=== PATIENT | female | born 1950 | race Caucasian/White ===

== ENCOUNTER → 2017-02-10 | Outpatient (CLI) | payer OTHER | LOC: FIMAGING 10:43 | PROVIDERS: ATTEND Physician Assistant | DX: Z12.31 Encounter for screening mammogram for malignant neoplasm of breast (principal); Z13.820 Encounter for screening for osteoporosis; M85.80 Other specified disorders of bone density and structure, unspecified site | CPT/HCPCS: G0202 ==

== ENCOUNTER → 2017-02-24 | Outpatient (CLI) | payer OTHER | LOC: FIMAGING 14:41 | PROVIDERS: ATTEND Physician Assistant | DX: R92.8 Other abnormal and inconclusive findings on diagnostic imaging of breast (principal) | CPT/HCPCS: 76641; G0206 ==

== ENCOUNTER 2017-05-03 12:52 | Day surgery (SDC) | payer OTHER ==
[2017-05-03] MEDS ORDERED: MIDAZOLAM 2 MG/2 ML VIAL ONE (14:44)
[2017-05-03] MEDS ORDERED: fentaNYL 100 MCG/2 ML INJ ONE (14:44)
== END 2017-05-03 17:05 | disposition home or self-care (01) ==
LOC: FIMAGING 12:52
PROVIDERS: ATTEND Internal Medicine Hematology & Oncology
PROC: 0DBP0ZX Excision of Rectum, Open Approach, Diagnostic (ICD-10-PCS; principal; 2017-05-03 16:00)
DX: C21.8 Malignant neoplasm of overlapping sites of rectum, anus and anal canal (principal)
CPT/HCPCS: J2250; J3010

== ENCOUNTER 2017-05-25 05:59 | Day surgery (SDC) | payer OTHER ==
[2017-05-25] MEDS ORDERED: ceFAZolin 2 GM/DEXTROSE 100 ML IV ONE (06:44)
[2017-05-25] MEDS ORDERED: LIDOCAINE 1% 300 MG/30 ML SDV ONE (06:45)
[2017-05-25] MEDS ORDERED: BUPIVACAINE 0.5% 30 ML SDV ONE (06:45)
[2017-05-25] MEDS ORDERED: SODIUM BICARBONATE 10 MEQ/10 ML SYR IVP ONE (06:45)
[2017-05-25] MEDS ORDERED: LR 1,000 ML IV ONE (07:14)
--- NOTE | 2017-05-25 07:20 | PDANEPAE ---
ANE History of Present Illness 67 yo F w cancer recurrence here for chemoport placement ANE Past Medical History - Cardiovascular History Hx Hypertension: No Hx Arrhythmias: No Hx Chest Pain: No Hx Coronary Artery / Peripheral Vascular Disease: No Hx CHF / Valvular Disease: No Hx Palpitations: No - Pulmonary History Hx COPD: No Hx Asthma/Reactive Airway Disease: No Hx Recent Upper Respiratory Infection: No Hx Oxygen in Use at Home: No Hx Sleep Apnea: No Sleep Apnea Screening Result - Last Documented: Negative - Neurologic History Hx Cerebrovascular Accident: No Hx Seizures: No Hx Dementia: No - Endocrine History Hx Diabetes: No - Renal History Hx Renal Disorders: No - Liver History Hx Hepatic Disorders: No - Neurological & Psychiatric Hx Hx Neurological and Psychiatric Disorders: No - Cancer History Hx Cancer: Yes Cancer History Comment: Rectal cancer - Congenital Disorder History Hx Congenital Disorders: No - GI History Hx Gastrointestinal Disorders: Yes Gastrointestinal History Comment: rectal cancer - Other Health History Other Health History: none - Chronic Pain History Chronic Pain: No - Surgical History Prior Surgeries: Right Shoulder- dislocation repair. rectal surgery for cancer. Tonsils ANE Review of Systems Review of systems is: negative - Exercise capacity Exercise capacity: >=4 METS METS (RN): 4 METS ANE Patient History - Allergies Allergies/Adverse Reactions: No Known Allergies Allergy (Verified 05/24/17 15:16) - Home Medications Home medications: home medication list seen and reviewed Home Medications: NK [No Known Home Meds] 05/03/17 [Last Taken Unknown] - NPO status NPO Status: no food or drink >8 hours NPO Since - Liquids (Date): 05/24/17 NPO Since - Liquids (Time): 20:00 NPO Since - Solids (Date): 05/24/17 NPO Since - Solids (Time): 20:00 - Anes Hx Anes Hx: no prior problems - Smoking Hx Smoking Status: Never smoked - Alcohol Use Alcohol Use: Rarely - Family Anes Hx Family Anes Hx: none Family Hx Anesthesia Complications: none ANE Labs/Vital Signs - Vital Signs Blood Pressure: 91/60 Heart Rate: 55 Respiratory Rate: 16 O2 Sat (%): 96 Height: 170.18 cm Weight: 72.575 kg ANE Physical Exam - Airway Neck exam: FROM Mallampati Score: Class 2 Mouth exam: normal dental/mouth exam - Pulmonary Pulmonary: no respiratory distress, clear to auscultation - Cardiovascular Cardiovascular: regular rate and rhythym, no murmur, rub, or gallop - ASA Status ASA Status: II ANE Anesthesia Plan Anesthesia Plan: GA w LMA
[2017-05-25] MEDS ORDERED: MIDAZOLAM 2 MG/2 ML VIAL IVP ONE (07:21)
[2017-05-25] MEDS ORDERED: LIDOCAINE 2% 100 MG/5 ML SYR ONE (07:28)
[2017-05-25] MEDS ORDERED: PROPOFOL 200 MG/20 ML VIAL ONE ×2 (07:28)
[2017-05-25] MEDS ORDERED: fentaNYL 100 MCG/2 ML INJ ONE (07:28)
--- NOTE | 2017-05-25 07:41 | PDHPUP ---
History & Physical Update H&P update statement: This history and physical update is based on an assessment of the patient which was completed after admission or registration (within 24 hours), but prior to the surgery/procedure. H&P update: H&P reviewed & patient examined, no change in patient's condition since H&P completed
[2017-05-25] MEDS ORDERED: ONDANSETRON 4 MG/2 ML VIAL ONE (07:54)
[2017-05-25] MEDS ORDERED: DEXAMETHASONE 4 MG/ML VIAL ONE (07:54)
[2017-05-25] MEDS ORDERED: epHEDrine SULFATE 10 MG/ML SYR ONE ×2 (08:14→08:15)
[2017-05-25] MEDS ORDERED: PROMETHAZINE HCL 25 MG/ML INJ IVP PRN (08:19)
[2017-05-25] MEDS ORDERED: fentaNYL 100 MCG/2 ML INJ IVP PRN (08:19)
[2017-05-25] MEDS ORDERED: OXYCODONE/APAP 5/325 TAB PO PRN (08:19)
[2017-05-25] MEDS ORDERED: ONDANSETRON 4 MG/2 ML VIAL IVP PRN (08:19)
[2017-05-25] MEDS ORDERED: ACETAMINOPHEN 500 MG TAB PO PRN (08:19)
[2017-05-25] MEDS ORDERED: NALOXONE HCL 0.4 MG/ML INJ IVP PRN (08:19)
[2017-05-25] MEDS ORDERED: HYDROCODONE/APAP 5/325 TAB PO PRN (08:25)
--- NOTE | 2017-05-25 08:25 | POSTOPPROG ---
Post Op Note Date of Operation: 05/25/17 Surgeon: Bret Ritter Belt Polisher: none Anesthesiologist: Familia Blair Anesthesia: GET(General Endotracheal) Pre-op Diagnosis: rectal CA Post-op Diagnosis: same Procedure: power port placement with flouro Findings: good position and flow Inf/Abcess present in the surg proc area at time of surgery?: No EBL: Minimal Complications: none
[2017-05-25 09:25] VITALS: O2SAT 99
[2017-05-25 10:25] VITALS: BP 100/67
[2017-05-25 10:34] VITALS: PULSE 71; RESP 16; TEMP 97.5
--- NOTE | 2017-05-25 19:03 | POSTANESTH ---
Post Anesthetic Evaluation Cardiovascular Status: Normal, Stable, Similar to Pre-Op Cond Respiratory Status: Normal, Stable, Similar to Pre-op Cond. Level of Consciousness/Mental Status: Can Participate in Eval, Alert and Oriented Pain Control: Adequate, Prn Tx Ordered Nausea/Vomiting Control: Adequate, Prn Tx Ordered Complications Possibly Related to Anesthesia: None Noted
== END 2017-05-25 11:28 | disposition home or self-care (01) ==
LOC: FSGY 05:59
PROVIDERS: ATTEND Surgery
PROC: 0JH60XZ Insertion of Tunneled Vascular Access Device into Chest Subcutaneous Tissue and Fascia, Open Approach (ICD-10-PCS; principal; 2017-05-25 07:30)
PROC: 02H633Z Insertion of Infusion Device into Right Atrium, Percutaneous Approach (ICD-10-PCS; principal; 2017-05-25 07:30)
DX: C20 Malignant neoplasm of rectum (principal); C79.9 Secondary malignant neoplasm of unspecified site
CPT/HCPCS: C1788; J0690; J1100; J1642; J2001; J2250; J2405; J2704; J3010

== ENCOUNTER → 2017-06-04 | Outpatient (CLI) | payer OTHER | LOC: FIMAGING 12:10 | PROVIDERS: ATTEND Surgery | DX: R07.89 Other chest pain (principal); C20 Malignant neoplasm of rectum; Z95.828 Presence of other vascular implants and grafts; Z92.21 Personal history of antineoplastic chemotherapy ==

== ENCOUNTER 2017-06-15 11:04 | Emergency (ER) | payer OTHER ==
[2017-06-15 11:13] VITALS: TEMP 98.2
--- NOTE | 2017-06-15 11:23 | CPEKG ---
Heart Rate: 72 RR Interval: 833 P-R Interval: 120 QRSD Interval: 88 QT Interval: 388 QTC Interval: 425 P Goessel: 33 QRS Goessel: 37 T Wave Goessel: 37 EKG Severity - NORMAL ECG - EKG Impression: SINUS RHYTHM Electronically Signed By: Jose Manuel Valle 15-Jun-2017 11:35:21
[2017-06-15] MEDS ORDERED: NS 500 ML IV ONE (11:30)
[2017-06-15] MEDS ORDERED: ASPIRIN 81 MG CHEWABLE TAB PO ONE (11:30)
--- NOTE | 2017-06-15 11:35 | EDPHY ---
H & P Stated Complaint: chemo tx for colorectal cancer chest pain Time Seen by Provider: 06/15/17 11:21 HPI/ROS: CHIEF COMPLAINT: Chest pain HISTORY OF PRESENT ILLNESS: The patient is a 67-year-old female who is being treated with chemotherapy doctor Dr. Griffith for colorectal cancer. She previously has had surgery resection 4 years ago. She had her 1st chemo treatment 2 weeks ago and had chest pain afterwards for about 3 days and then it resolved. She had an EKG done at the time that the oncologist told her was normal. She had chemotherapy again yesterday and has had pain ever since. Yesterday was somewhat positional more when she leaned forward. Today it is constant. She denies shortness of breath. She denies diaphoresis or nausea. She denies lightheadedness or palpitations. REVIEW OF SYSTEMS: Constitutional: denies: chills, fever, recent illness, recent injury EENTM: denies: blurred vision, double vision, nose congestion Respiratory: denies: cough, shortness of breath Cardiac: See HPI Gastrointestinal/Abdominal: denies: abdominal pain, diarrhea, nausea, vomiting, blood streaked stools Genitourinary: denies: dysuria, frequency, hematuria, pain Musculoskeletal: denies: joint pain, muscle pain Skin: denies: lesions, rash, jaundice, bruising Neurological: denies: headache, numbness, paresthesia, tingling, dizziness, weakness Hematologic/Lymphatic: denies: blood clots, easy bleeding, easy bruising Immunologic/allergic: denies: HIV/AIDS, transplant EXAM: GENERAL: Well-appearing, well-nourished and in no acute distress. HEAD: Atraumatic, normocephalic. EYES: Pupils equal round and reactive to light, extraocular movements intact, sclera anicteric, conjunctiva are normal. ENT: TMs normal, nares patent, oropharynx clear without exudates. Moist mucous membranes. NECK: Normal range of motion, supple without lymphadenopathy or JVD. LUNGS: Breath sounds clear to auscultation bilaterally and equal. No wheezes rales or rhonchi. HEART: Regular rate and rhythm without murmurs, rubs or gallops. ABDOMEN: Soft, nontender, normoactive bowel sounds. No guarding, no rebound. No masses appreciated. BACK: No CVA tenderness, no spinal tenderness, step-offs or deformities EXTREMITIES: Normal range of motion, no pitting or edema. No clubbing or cyanosis. NEUROLOGICAL: Cranial nerves II through XII grossly intact. Normal speech, normal gait. 5/5 strength, normal movement in all extremities, normal sensation PSYCH: Normal mood, normal affect. SKIN: Warm, dry, normal turgor, no visible rashes or lesions. Source: Patient Exam Limitations: No limitations - Personal History Current Tetanus/Diphtheria Vaccine: Yes - Medical/Surgical History Hx Asthma: No Hx Chronic Respiratory Disease: No Hx Diabetes: No Hx Cardiac Disease: No Hx Renal Disease: No Hx Cirrhosis: No Hx Alcoholism: No Hx HIV/AIDS: No Hx Splenectomy or Spleen Trauma: No Other PMH: rectal cancer - Family History Significant Family History: No pertinent family hx - Social History Smoking Status: Never smoked Alcohol Use: Sober Drug Use: None Constitutional: Initial Vital Signs Temperature (C) 36.8 C 06/15/17 11:11 Heart Rate 85 06/15/17 11:11 Respiratory Rate 20 06/15/17 11:11 Blood Pressure 110/77 06/15/17 11:11 O2 Sat (%) 98 06/15/17 11:11 O2 Delivery Mode Room Air Allergies/Adverse Reactions: No Known Allergies Allergy (Verified 05/24/17 15:16) Home Medications: Medication Instructions Recorded NK [No Known Home Meds] 06/15/17 Medical Decision Making - Diagnostics EKG Interpretation: An EKG obtained and was read and documented in trace view. Please see trace view for full reading and report. Sinus rhythm, no acute ischemic changes or signs of right heart strain Imaging: Discussed imaging studies w/ data reviewer Radiologist Procedures: Bedside ultrasound: Limited bedside echo performed. No pericardial effusion seen. No abnormal cardiac wall motion or dilatation. ED Course/Re-evaluation: 12:50 p.m. we discussed the CT and lab results which are reassuring the setting of ongoing symptoms for 3 days. The patient is relieved and is eager to go home. She declines further observation or repeat testing. She will talk to Dr. Griffith about this chest pain which appears to be a side-effect of her chemotherapy. We discussed other possible etiologies as well as indications for returning to the emergency department. Differential Diagnosis: Partial list of the Differential diagnosis considered include but were not limited to; chest pain, pericarditis, pericardial effusion, pleurisy and although unlikely based on the history and physical exam, I also considered PE, acute coronary disease, arrhythmia. I discussed these differential diagnoses and the plan with the patient as well as the usual and expected course. The patient understands that the diagnosis is provisional and that in medicine we are not always correct and that further workup is often warranted. Usual and customary warnings were given. All of the patient's questions were answered. The patient was instructed to return to the emergency department should the symptoms at all worsen or return, otherwise to followup with the physician as we discussed. - Data Points Laboratory Results: Laboratory Results 06/15/17 11:30 06/15/17 11:30 Medications Given: Discontinued Medications Aspirin (Aspirin) 324 mg PO EDNOW ONE Stop: 06/15/17 11:31 Last Admin: 06/15/17 11:40 Dose: 324 mg Heparin Sodium (Porcine) (Heparin Lock Flush) 500 unit IVP EDNOW ONE Stop: 06/15/17 13:28 Last Admin: 06/15/17 13:40 Dose: 500 unit Sodium Chloride (Ns) 500 mls @ 1,000 mls/hr IV EDNOW ONE PRN Reason: Protocol Stop: 06/15/17 11:59 Last Admin: 06/15/17 11:39 Dose: 500 mls Departure - Departure Disposition: Home, Routine, Self-Care Clinical Impression: Chest pain Qualifiers: Chest pain type: chest pain on breathing Qualified Code(s): R07.1 - Chest pain on breathing; R07.81 - Pleurodynia Condition: Fair Instructions: Chest Pain (ED) Referrals: Tejas Griffith MD [Primary Care Provider] - As per Instructions
[2017-06-15 11:40] LABS: % IMMATURE GRANULYOCYTES 1.5 % (0.0-1.1); ABSOLUTE IMMATURE GRANULOCYTES 0.26 10^3/uL (0.00-0.10); ADD DIFF? NO; ADD MORPH? NO; ADD SCAN? YES; ATYPICAL LYMPHOCYTE FLAG 0 (0-99); FRAGMENT RBC FLAG 0 (0-99); HEMATOCRIT 36.6 % (38.0-47.0); HEMOGLOBIN 12.5 g/dL (12.6-16.3); LIPEMIA HEMOLYSIS FLAG 90 (0-99); MEAN CELL HEMOGLOBIN 30.8 pg (27.9-34.1); MEAN CELL HEMOGLOBIN CONCENTR. 34.2 g/dL (32.4-36.7); MEAN CELL VOLUME 90.1 fL (81.5-99.8); MEAN PLATELET VOLUME 10.1 fL (8.7-11.7); PLATELET CLUMPS FLAG 10 (0-99); PLATELET COUNT 214 10^3/uL (150-400); RED BLOOD CELL COUNT 4.06 10^6/uL (4.18-5.33)
[2017-06-15 11:41] LABS: LEFT SHIFT FLG 110 (0-99)
[2017-06-15 11:49] LABS: ALANINE AMINOTRANSFERASE 40 IU/L (9-52); ALKALINE PHOSPHATASE 164 IU/L (38-126); ANION GAP 11 mEq/L (8-16); ASPARTATE AMINOTRANSFERASE 27 IU/L (14-46); BILIRUBIN,TOTAL 0.4 mg/dL (0.1-1.4); BILIRUBIN-CONJUGATED 0.2 mg/dL (0.0-0.5); BILIRUBIN-UNCONJUGATED 0.2 mg/dL (0.0-1.1); CARBON DIOXIDE 19 mEq/l (22-31); CHLORIDE 105 mEq/L (97-110); CREATININE 0.8 mg/dL (0.6-1.0); GLOMERULAR FILTRATION RATE > 60; GLUCOSE 123 mg/dL (70-100); POTASSIUM 3.8 mEq/L (3.5-5.2); SODIUM 135 mEq/L (134-144); TOTAL PROTEIN 6.3 g/dL (6.3-8.2)
[2017-06-15 11:53] LABS: APTT 21.8 SEC (23.0-38.0); PROTIME(PATIENT) 13.1 SEC (12.0-15.0)
[2017-06-15] MEDS ORDERED: IOPAMIDOL (ISOVUE 370) 100 ML BTL IV ONE (11:53)
[2017-06-15 12:01] LABS: TROPONIN I < 0.012 ng/mL (0.000-0.034)
[2017-06-15 12:05] LABS: SCAN POSITIVE
[2017-06-15 12:14] LABS: PLATELET ESTIMATE ADEQUATE (ADEQ)
[2017-06-15 12:15] LABS: TOXIC GRANULATION PRESENT
[2017-06-15 12:56] VITALS: BP 118/80; PULSE 72; RESP 18; O2SAT 94
== END 2017-06-15 13:41 | disposition home or self-care (01) ==
DX: R07.81 Pleurodynia (principal); R07.1 Chest pain on breathing; Z85.048 Personal history of other malignant neoplasm of rectum, rectosigmoid junction, and anus
CPT/HCPCS: 71275; 93005; 96374; 99285; J1642; Q9967

== ENCOUNTER → 2017-07-08 | Outpatient (CLI) | payer OTHER | LOC: BHFA 14:30 | PROVIDERS: ATTEND Internal Medicine Cardiovascular Disease | DX: R00.1 Bradycardia, unspecified (principal); R06.02 Shortness of breath ==

== ENCOUNTER → 2017-07-23 | Outpatient (CLI) | payer OTHER | LOC: BHFA 09:15 | PROVIDERS: ATTEND Internal Medicine Cardiovascular Disease | DX: R06.02 Shortness of breath (principal); R00.2 Palpitations; I34.1 Nonrheumatic mitral (valve) prolapse ==

== ENCOUNTER → 2018-02-01 | Outpatient (CLI) | payer OTHER | LOC: FIMAGING 11:45 | PROVIDERS: ATTEND Internal Medicine Hematology & Oncology | DX: M79.601 Pain in right arm (principal) ==

== ENCOUNTER 2018-02-16 09:56 | Day surgery (SDC) | payer OTHER ==
[2018-02-16] MEDS ORDERED: MEPERIDINE 25 MG/ML SYR IVP PRN (09:58)
[2018-02-16] MEDS ORDERED: MIDAZOLAM 2 MG/2 ML VIAL IVP PRN (09:58)
[2018-02-16] MEDS ORDERED: FLUMAZENIL 0.5 MG/5 ML MDV IVP PRN (09:58)
[2018-02-16] MEDS ORDERED: fentaNYL 100 MCG/2 ML INJ IVP PRN ×2 (09:58→13:18)
[2018-02-16] MEDS ORDERED: PROTAMINE SULFATE 50 MG/5 ML VIAL IVP PRN (09:58)
[2018-02-16] MEDS ORDERED: NALOXONE HCL 0.4 MG/ML INJ IVP PRN (09:58)
[2018-02-16] MEDS ORDERED: NS 1,000 ML IV SCH (10:00)
[2018-02-16 10:55] LABS: INR 1.03 (0.83-1.16); PROTIME(PATIENT) 13.7 SEC (12.0-15.0)
[2018-02-16] MEDS ORDERED: ceFAZolin 2 GM/SWFI 20 ML SYR IVP ONE (10:55)
[2018-02-16] MEDS ORDERED: ceFAZolin 2 GM/DEXTROSE 100 ML IV ONE (11:10)
[2018-02-16] MEDS ORDERED: ceFAZolin 2 GM/SWFI 2 GM/20 ML SYR IVP ONE (11:30)
--- NOTE | 2018-02-16 11:43 | PDPROPOC ---
Sedation Plan of Care Sedation Plan of Care: vital signs stable, mental status noted ASA Classification: ASA 2 Planned drugs: fentanyl, midazolam Mallampati Score: Class 2 Mallampati Reference Image:
--- NOTE | 2018-02-16 11:44 | PDGENHP ---
History & Physical Chief Complaint: post operative pelvic collection History of Present Illness: APR surgery at [place] last month, new pelvic pain with collection seen on OSH CT Relevant Physical Exam: mild post operative abd distension is improving Cardiorespiratory Assessment: RRR, nl wob
[2018-02-16] MEDS ORDERED: ONDANSETRON 4 MG/2 ML VIAL IVP PRN (12:40)
[2018-02-16] MEDS ORDERED: ACETAMINOPHEN 325 MG TAB PO PRN (12:40)
--- NOTE | 2018-02-16 12:40 | PDRADPN ---
Radiology Procedure Note Date of Procedure: 02/16/18 Radiologist: Walter Shoemaker Anesthesia: IV Sedation Pre-op Diagnosis: perisacral abscess Post-op Diagnosis: same Indication: pain, collection seen on CT Procedure: CT Guided drain placement Finding(s): CT guided posterior approach from right side into collection, purulent blood products aspirated. 10F APD formed. ~50cc drained at procedure. Inf/Abcess present in the surg proc area at time of surgery?: Yes Depth: Deep Incisional (Fascial) EBL: Minimal Complications: none Specimen(s): 10mL purulent blood submitted
[2018-02-16] MEDS ORDERED: oxyCODONE IR 5 MG TAB PO PRN (12:57)
[2018-02-16] MEDS ORDERED: traMADol 50 MG TAB PO PRN (13:18)
[2018-02-16] MEDS ORDERED: fentaNYL 100 MCG/2 ML INJ ONE (13:19)
[2018-02-16] MEDS ORDERED: traMADol 50 MG TAB ONE (13:26)
[2018-02-16] MEDS ORDERED: HYDROmorphONE/DILAUDID 2 MG/ML INJ IVP PRN (14:03)
[2018-02-16] MEDS ORDERED: HYDROmorphONE/DILAUDID 2 MG/ML INJ ONE (14:07)
[2018-02-16 15:27] VITALS: BP 112/67
== END 2018-02-16 15:34 | disposition home or self-care (01) ==
LOC: FIMAGING 09:56
PROVIDERS: ATTEND Internal Medicine Hematology & Oncology
PROC: 0W9G30Z Drainage of Peritoneal Cavity with Drainage Device, Percutaneous Approach (ICD-10-PCS; principal; 2018-02-16 12:51)
DX: K65.1 Peritoneal abscess (principal); T81.89XA Other complications of procedures, not elsewhere classified, initial encounter; R10.2 Pelvic and perineal pain; Y65.8 Other specified misadventures during surgical and medical care
CPT/HCPCS: J0690; J1170; J1642; J2250; J2310; J3010

== ENCOUNTER → 2018-02-24 | Day surgery (SDC) | payer OTHER | END | disposition home or self-care (01) | LOC: FIMAGING 10:07 | PROVIDERS: ATTEND Internal Medicine Hematology & Oncology | PROC: 0WPG30Z Removal of Drainage Device from Peritoneal Cavity, Percutaneous Approach (ICD-10-PCS; principal; 2018-02-24) | PROC: BW111ZZ Fluoroscopy of Abdomen and Pelvis using Low Osmolar Contrast (ICD-10-PCS; principal; 2018-02-24) | DX: Z48.03 Encounter for change or removal of drains (principal); C20 Malignant neoplasm of rectum ==

== ENCOUNTER 2018-03-27 08:43 | Observation (INO) | payer OTHER ==
[2018-03-27 09:30] LABS: PLATELET COUNT 340 10^3/uL (150-400)
--- NOTE | 2018-03-27 09:49 | EDPHY ---
H & P Stated Complaint: coccyx pain - Personal History Current Tetanus/Diphtheria Vaccine: Yes Current Tetanus Diphtheria and Acellular Pertussis (TDAP): Yes - Medical/Surgical History Hx Asthma: No Hx Chronic Respiratory Disease: No Hx Diabetes: No Hx Cardiac Disease: No Hx Renal Disease: No Hx Cirrhosis: No Hx Alcoholism: No Hx HIV/AIDS: No Hx Splenectomy or Spleen Trauma: No Other PMH: rectal cancer, R shoulder repair - Social History Smoking Status: Never smoked Time Seen by Provider: 03/27/18 08:55 HPI/ROS: CHIEF COMPLAINT: Coccygeal pain times several weeks HISTORY OF PRESENT ILLNESS: 67-year-old female with history of rectal cancer, history of abdominal peritoneal resection at the [facility] in late December 2017 with subsequent development of perirectal abscess drained by interventional radiology service at [facility]. The patient is complete been complaining of coccygeal pain since the December 2017 procedure. She has not had chemotherapy or radiation therapy secondary to recurrent infections in this area. She contacted her surgeon at [facility] yesterday because of the continued pain he recommend she come to the ER, per patient, for a CRP and sed rate,"if there were abnormal he told me I need to be on antibiotics for a month ". She has otherwise been feeling well with no fever no chills no flu-like symptoms , no malaise, her colostomy discharge has been normal with no blood or purulent discharge. No discharge from her rectum. No pain with urination. REVIEW OF SYSTEMS: A ten point review of systems was performed and is negative with the exception of the items mentioned in the HPI PAST MEDICAL & SURGICAL HISTORY: Rectal cancer. 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 Laying in a right lateral recumbent position, tearful. 2) HEAD: Normocephalic, atraumatic 3) HEENT: Pupils equal, round, reactive to light bilaterally. Sclera anicteric. 4) NECK: Full range of motion, no meningeal signs. 5) LUNGS: Clear auscultation bilaterally, no wheezes, no rhonchi, no retractions. 6) HEART: Regular rate and rhythm, no murmur, no heave, no gallop. 7) ABDOMEN: No guarding, no rebound, no focal tenderness, negative McBurney's, negative Allen's, negative Rovsing's, negative peritoneal sign, 8) MUSCULOSKELETAL: Moving all extremities, no focal areas of tenderness, no obvious trauma. No peripheral edema or discoloration. 9) BACK: [No CVA tenderness, tender to palpation lower sacrum and coccygeal region with no overlying erythema or skin changes, no signs of cutaneous abscess , no crepitus. Perianal examination is unremarkable with no erythema. Perineum unremarkable. 10) SKIN: No rash, no petechiae. 11) Psychiatric: Patient is oriented X 3, there is no agitation. DIFFERENTIAL DIAGNOSIS: In no particular order including but limited to postsurgical pain, neuropathic pain, perirectal abscess, osteomyelitis of sacrum and/or coccyx (Jordin,Zeke Medina) Constitutional: Initial Vital Signs Temperature (C) 36.6 C 03/27/18 08:47 Heart Rate 90 03/27/18 08:47 Respiratory Rate 16 03/27/18 08:47 Blood Pressure 98/76 L 03/27/18 08:47 O2 Sat (%) 99 03/27/18 08:47 O2 Delivery Mode Room Air Allergies/Adverse Reactions: No Known Allergies Allergy (Verified 03/27/18 08:46) Home Medications: Medication Instructions Recorded Acetaminophen [Tylenol ES 500 mg 1,000 mg PO Q6HRS PRN 03/27/18 (*)] Herbals/Supplements -Info Only 1 ea PO DAILY 03/27/18 Ibuprofen [Motrin (*)] 600 mg PO TID PRN 03/27/18 Lidocaine/Prilocaine [Emla Cream] 1 josh TP DAILY PRN 03/27/18 Melatonin 20 mg PO HS PRN 03/27/18 Ondansetron Odt [Zofran Odt 4 mg 4 mg PO Q6HRS PRN 03/27/18 (*)] traMADol [Ultram 50 mg (*)] 50 mg PO Q6HRS PRN 03/27/18 Ertapenem [INVanz] 1 gm IV DAILY vial 03/28/18 Medical Decision Making - Diagnostics Imaging Results: Images reviewed myself (Zeke Brenner) ED Course/Re-evaluation: 9:15 a.m.: Care of patient under supervision of secondary supervising physician Dr Kimber Reynolds with whom I discussed case. I had a lengthy discussion with the patient regarding the specificity of sedimentation rate and C-reactive protein. I informed her that I am happy to obtain knees however whether these are positive or negative this does not necessarily rule in or rule out infection. Will proceed with obtaining his laboratory studies. Have expressed my concerns over possible perirectal abscess and/or osteomyelitis of the sacrum and/or coccyx. She agrees to proceed with diagnostic studies. After reviewing the patient's laboratory studies recommended CT imaging of the abdomen pelvis to evaluate for possible perirectal or presacral abscess. Indications risks benefits discussed with patient and she consents. 12:15 p.m.: Consultation with interventional radiology Dr. Ian Shoemaker who has performed prior aspiration on this patient, he will review the images and coordinate with hospitalist. 12:24 p.m.: Consultation with hospitalist, Meggan Marte, admit to Dr. Stevens. I will consult infectious disease. 12:45 p.m.: Informed by Dr. Shoemaker he will plan on performing CT-guided aspiration later this afternoon or this evening. Patient remains NPO since dinner last night. 12:54 p.m.: Consultation with Dr Warenr , Infectious Disease will consult. Antibiotics to be determined by Dr. Warner (Zeke Brenner) The patient was evaluated and managed by the physician assistant operator. I have reviewed this chart and I agree with the findings and plan of care as documented , as indicated by my signature. I am the secondary supervising physician. I was kept apprised of this patient's condition and evaluation throughout her stay in the emergency department. (Kimber Reynolds) - Data Points Laboratory Results: Laboratory Results 03/27/18 08:40 03/27/18 08:40 Medications Given: Discontinued Medications Acetaminophen (Tylenol) 650 mg PO Q4HRS PRN PRN Reason: Pain, Mild/Fever, Can Take PO Stop: 09/23/18 14:40 Last Admin: 03/28/18 08:13 Dose: 650 mg Fentanyl (Sublimaze) 0 mcg IVP ONCALL PRN PRN Reason: Per provider during procedure Stop: 03/27/18 14:35 Last Admin: 03/27/18 15:28 Dose: 100 mcg Hydromorphone HCl (Dilaudid) 0.2 - 0.4 mg IVP Q4HRS PRN PRN Reason: Pain, Severe Unable to Take PO Stop: 04/06/18 14:40 Last Admin: 03/28/18 08:15 Dose: 0.4 mg Hydromorphone HCl (Dilaudid) 0.2 mg IVP ONCE ONE Stop: 03/27/18 17:01 Last Admin: 03/27/18 17:03 Dose: 0.2 mg Sodium Chloride (Ns) 1,000 mls @ 0 mls/hr IV ONCE ONE PRN Reason: Wide Open Stop: 03/27/18 10:36 Last Admin: 03/27/18 10:39 Dose: 1,000 mls Sodium Chloride (Ns) 1,000 mls @ 30 mls/hr IV CONT POORNIMA Stop: 09/23/18 13:44 Last Admin: 03/27/18 15:28 Dose: 1,000 mls Ertapenem 1 gm/ Sodium (Chloride) 100 mls @ 200 mls/hr IV DAILY POORNIMA PRN Reason: Protocol Stop: 04/26/18 13:44 Last Admin: 03/28/18 09:38 Dose: 100 mls Midazolam HCl (Versed) 0 mg IVP ONCALL PRN PRN Reason: Per provider during procedure Stop: 03/27/18 14:35 Last Admin: 03/27/18 15:28 Dose: 2 mg Tramadol HCl (Ultram) 50 mg PO Q6HRS PRN PRN Reason: Pain, Moderate Able to Take PO Stop: 09/23/18 16:27 Last Admin: 03/28/18 11:26 Dose: 50 mg Departure - Departure Disposition: [facility] Clinical Impression: Pre sacral abscess Condition: Fair
[2018-03-27] MEDS ORDERED: NS 1,000 ML IV ONE (10:35)
[2018-03-27] MEDS ORDERED: IOPAMIDOL (ISOVUE-300) 100 ML BTL ONE (10:50)
[2018-03-27] MEDS ORDERED: LIDOCAINE 1% 300 MG/30 ML SDV ONE (13:31)
[2018-03-27] MEDS ORDERED: MIDAZOLAM 2 MG/2 ML VIAL IVP PRN (13:35)
[2018-03-27] MEDS ORDERED: GLUCAGON HCL 1 MG VIAL IVP PRN (13:35)
[2018-03-27] MEDS ORDERED: NALOXONE HCL 0.4 MG/ML INJ IVP PRN (13:35)
[2018-03-27] MEDS ORDERED: PROTAMINE SULFATE 50 MG/5 ML VIAL IVP PRN (13:35)
[2018-03-27] MEDS ORDERED: ALTEPLASE 2 MG VIAL IVP PRN (13:35)
[2018-03-27] MEDS ORDERED: fentaNYL 100 MCG/2 ML INJ IVP PRN (13:35)
[2018-03-27] MEDS ORDERED: MEPERIDINE 25 MG/ML SYR IVP PRN (13:35)
[2018-03-27] MEDS ORDERED: HEPARIN 10,000 UNIT/10 ML MDV (1,000 UNIT/ML) IVP PRN (13:35)
[2018-03-27] MEDS ORDERED: FLUMAZENIL 0.5 MG/5 ML MDV IVP PRN (13:35)
[2018-03-27] MEDS ORDERED: NS 1,000 ML IV SCH (13:45)
--- NOTE | 2018-03-27 14:03 | PDGENHP ---
History & Physical Chief Complaint: SACRAL TIP PAIN History of Present Illness: CRC post resection with recurrent complex collection at sacrococcygeal tip. previously drained and cultured. Relevant Physical Exam: no skin changes. Cardiorespiratory Assessment: rrr, nl wob
--- NOTE | 2018-03-27 14:04 | PDPROPOC ---
Sedation Plan of Care Sedation Plan of Care: vital signs stable, mental status noted, patient educated of risks, benefits, alternatives, patient can tolerate sedation ASA Classification: ASA 2 Planned drugs: fentanyl, midazolam Mallampati Score: Class 2 Mallampati Reference Image:
--- NOTE | 2018-03-27 14:36 | GCON ---
[f rep st] CONSULTATION INFECTIOUS DISEASE CONSULT DATE OF CONSULTATION: 03/27/2018 REFERRING PHYSICIAN: LARRY Gordillo REASON FOR CONSULT: To assist in the management of this 67-year-old female with a history of rectal carcinoma, now admitted with recurrent presacral abscess. HISTORY OF PRESENT ILLNESS: The patient is a very pleasant 67-year-old female whose previous medical history is notable for the following: History of rectal carcinoma, status post abdominal peritoneal resection at the [facility] on January 21. The patient states that she was admitted to that hospital for 5 days. When I asked her about the surgery and any complications, she told me there were no complications, but the surgeon had told her that they had debrided part of her coccyx to ensure that all of the margins were clean from cancer. She states that her anus was oversewn, and she has a permanent ostomy. The patient tells me she has received chemotherapy. Last chemotherapy was in September. She states that it was felt she had a metastases to the lung, but followup PET-CT showed that this had resolved in December of this year after chemotherapy. Regarding her present issues, the patient states that postoperatively, after her surgery at the [facility], she had some persistent sacral discomfort. She had a CT scan of the abdomen and pelvis done mid March that showed a small presacral fluid collection concerning for abscess. The patient underwent a CT- guided aspiration with drain placement. 80 cc was obtained through the drain, and 10 cc were sent for microbiologic evaluation. The Gram stain showed 4+ PMNs , 4+ gram-positive pleomorphic rods, and the culture grew 4+ Propionibacterium avidum. The patient states that Dr. Ritter called 1 of my colleagues, I believe , who recommended an oral antibiotic. The patient states that she took an unknown oral antibiotic for 5 days only. Around the time of the aspiration, the patient had denied any fevers or shaking chills. Her only manifestation of an infection was pain. After the aspiration , the patient states that she has had essentially persistent unrelenting pain. She denies any fevers or shaking chills, only pain. She has been in touch with her surgeon at the [facility] over the past couple of weeks, who recommended that she come to the emergency room for blood work including a CBC and inflammatory markers. The patient presented this morning given unrelenting pain. A CT scan was performed that revealed a 6.5 cm presacral abscess. This CT was reviewed with Dr. Houser. Given the abscess, I am now asked to assist in her management. The patient denies any fevers, shaking chills, nausea, vomiting, diarrhea, only persistent pain in her coccyx area and particularly her right buttock and gluteal fold. She states that the area has not been red. She has not been on any antibiotics recently save for the 5 days of antibiotics in late January. PREVIOUS MEDICAL HISTORY: As outlined above. PRESENT MEDICATIONS: Include Motrin, Tylenol, and tramadol for the pain. 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 No tobacco or alcohol. No other unusual exposures. REVIEW OF SYSTEMS: Notable for severe pain in her sacrum. Otherwise, 10 systems were reviewed and all are negative. PHYSICAL EXAM: VITAL SIGNS: T current is 36.8. T-max is 37. Heart rate is 65 , blood pressure 105/56, 99% on room air. GENERAL: 67-year-old female lying in bed, nontoxic appearing, intermittently tearful secondary to pain. HEENT: Atraumatic, normocephalic. Pupils equal, round, react to light. Extraocular movements are intact. No conjunctival injection appreciated. Mucous membranes moist. No oral lesions noted. Dentition in fair repair. No cervical or supraclavicular adenopathy. CARDIOVASCULAR: S1, S2. No rubs, gallops, or murmurs. LUNGS: Clear to auscultation bilaterally with no rales, rhonchi, or wheeze. ABDOMEN: Soft. No organomegaly or tenderness to palpation. The patient has a colostomy bag in place. EXTREMITIES: No clubbing, cyanosis, or edema. The patient has onychomycosis of her toenails on the left. The patient' s right buttock is mildly indurated, but no erythema. It is tender. This is near her gluteal fold. Her anus has been oversewn. There is tenderness at the area of the coccyx, but again no overlying skin changes. NEUROLOGIC: She is alert and oriented x3. No focal deficits. LABORATORY DATA: Microbiologic data as outlined above. Blood cultures x2 are pending. White blood cell count of 5.8, hematocrit 31, platelet count of 340. ESR of 29, CRP of 30. BUN and creatinine 12/0.8. Radiographic data as outlined above. IMPRESSION: 67-year-old female with history of rectal carcinoma status post abdominal pelvic resection at the [facility] on January 21. Less than 1 month later, she was found to have a small presacral abscess, and underwent drainage in addition to 5 days of an unknown oral antibiotic. She now presents with a much larger presacral abscess. Strongly suspect osteomyelitis of the coccyx as possible explanation for recurrence. She will need an MRI for further evaluation of this area. Please see below for plan. PLAN: 1. Given the patient's previous microbiology, will start antibiotics in the form of Ertapenem 1 g IV daily. 2. Will obtain MRI with contrast of the sacrum and coccyx to further evaluate the possibility of osteomyelitis in this area. 3. The patient will undergo IR drainage of the abscess this afternoon; I have ordered cultures, including fungal cultures. 4. Blood cultures have been sent. Thank you very much for consulting Infectious Diseases. We will continue to follow this patient with you. /[id number]/MODL MTDD
[2018-03-27] MEDS ORDERED: ZOLPIDEM TARTRATE 5 MG TAB PO PRN (14:41)
[2018-03-27] MEDS ORDERED: oxyCODONE IR 5 MG TAB PO PRN (14:41)
[2018-03-27] MEDS ORDERED: ONDANSETRON DISINTEGRATING 4 MG TAB PO PRN (14:41)
[2018-03-27] MEDS ORDERED: ONDANSETRON 4 MG/2 ML VIAL IVP PRN (14:41)
[2018-03-27] MEDS ORDERED: PROMETHAZINE HCL 25 MG/ML INJ IVP PRN (14:41)
[2018-03-27] MEDS ORDERED: LORazepam 0.5 MG TAB PO PRN (14:41)
[2018-03-27] MEDS ORDERED: LORazepam 2 MG/ML INJ IVP PRN (14:41)
[2018-03-27 14:49] LABS: INR 0.95 (0.83-1.16); PROTIME(PATIENT) 12.9 SEC (12.0-15.0)
--- NOTE | 2018-03-27 15:30 | PDRADPN ---
Radiology Procedure Note Date of Procedure: 03/27/18 Radiologist: Walter Shoemaker Anesthesia: IV Sedation Pre-op Diagnosis: sacral abscess Post-op Diagnosis: same Indication: pain, control infection Procedure: CT guided 10F drain placement Finding(s): 35mL frankly purulent fluid. drain position optimal. Inf/Abcess present in the surg proc area at time of surgery?: No EBL: Minimal Complications: none Specimen(s): 5mL purulent fluid submitted for micro analysis
[2018-03-27] MEDS ORDERED: HYDROmorphONE/DILAUDID 1 MG/ML INJ ONE (15:55)
[2018-03-27] MEDS: HYDROmorphONE/DILAUDID 1 MG/ML INJ IVP PRN ×2 (15:57→21:05)
[2018-03-27] MEDS: ERTAPENEM 1 GM in NS 100 ML IV SCH (16:34)
[2018-03-27] MEDS: traMADol 50 MG TAB PO PRN ×2 (17:00→23:02)
[2018-03-27] MEDS ORDERED: HYDROmorphONE/DILAUDID 1 MG/ML INJ IVP ONE (17:00)
--- NOTE | 2018-03-27 17:40 | PDGENHP ---
History and Physical - Chief Complaint sacral pain - History of Present Illness 67 yo F with hx of metastatic rectal cancer and recurrent presacral abscesses admitted with persistent sacral pain. Patient has undergone surgery, xrt and chemo for her rectal cancer as well as recurrent drainage of sacral abscess. Patient underwent IR guided drainage of abscess last month and had a short course of oral abx at that time. She has not had fever or chills, she has not had n/v. She has a permanent ostomy that is working well and she has not noted any change in her stool output. History Information - Allergies/Home Medication List Allergies/Adverse Reactions: No Known Allergies Allergy (Verified 03/27/18 08:46) Home Medications: Acetaminophen [Tylenol ES 500 mg (*)] 1,000 mg PO Q6HRS PRN 03/27/18 [Last Taken 03/27/18 09:30] Herbals/Supplements -Info Only 1 ea PO DAILY 03/27/18 [Last Taken Unknown] Ibuprofen [Motrin (*)] 600 mg PO TID PRN 03/27/18 [Last Taken Unknown] Lidocaine/Prilocaine [Emla Cream (RX)] 1 josh TP DAILY PRN 03/27/18 [Last Taken Unknown] Melatonin 20 mg PO HS PRN 03/27/18 [Last Taken Unknown] Ondansetron Odt [Zofran Odt 4 mg (*)] 4 mg PO Q6HRS PRN 03/27/18 [Last Taken Unknown] traMADol [Ultram 50 mg (*)] 50 mg PO Q6HRS PRN 03/27/18 [Last Taken 03/27/18 10: 00] I have personally reviewed and updated: family history, medical history, social history, surgical history - Past Medical History cancer (metastatic rectal s/p surgery/xrt/chemo) Additional medical history: recurrent presacral abscess - Surgical History Additional surgical history: rectal surgery resection--anus oversewn, permanent ostomy. shoulder surgery. abscess drainage - Family History Positive for: non-pertinent - Social History Smoking Status: Never smoked Alcohol Use: Rarely Drug Use: None Review of Systems Review of Systems: ROS: 10pt was reviewed & negative except for what was stated in HPI & below Physical Exam Physical Exam: Temp Pulse Resp BP Pulse Ox 36.5 C 61 14 104/76 97 03/27/18 17:28 03/27/18 17:28 03/27/18 17:28 03/27/18 17:28 03/27/18 17:28 Constitutional: no apparent distress, appears nourished Eyes: PERRL Ears, Nose, Mouth, Throat: moist mucous membranes, hearing normal Cardiovascular: regular rate and rhythym, no murmur, rub, or gallop, No edema Respiratory: no respiratory distress, no rales or rhonchi Gastrointestinal: normoactive bowel sounds, soft, non-tender abdomen Skin: warm, normal color Musculoskeletal: full muscle strength Neurologic: AAOx3 Psychiatric: interacting appropriately, not anxious, not encephalopathic Lab Data & Imaging Review 03/27/18 08:40 03/27/18 08:40 WBC 5.84 10^3/uL (3.80-9.50) 03/27/18 08:40 RBC 3.48 10^6/uL (4.18-5.33) L 03/27/18 08:40 Hgb 10.3 g/dL (12.6-16.3) L 03/27/18 08:40 Hct 31.5 % (38.0-47.0) L 03/27/18 08:40 MCV 90.5 fL (81.5-99.8) 03/27/18 08:40 MCH 29.6 pg (27.9-34.1) 03/27/18 08:40 MCHC 32.7 g/dL (32.4-36.7) 03/27/18 08:40 RDW 13.6 % (11.5-15.2) 03/27/18 08:40 Plt Count 340 10^3/uL (150-400) 03/27/18 08:40 MPV 9.1 fL (8.7-11.7) 03/27/18 08:40 Neut % (Auto) 67.4 % (39.3-74.2) 03/27/18 08:40 Lymph % (Auto) 17.1 % (15.0-45.0) 03/27/18 08:40 [place] % (Auto) 11.0 % (4.5-13.0) 03/27/18 08:40 Eos % (Auto) 3.1 % (0.6-7.6) 03/27/18 08:40 Baso % (Auto) 1.2 % (0.3-1.7) 03/27/18 08:40 Nucleat RBC Rel Count 0.0 % (0.0-0.2) 03/27/18 08:40 Absolute Neuts (auto) 3.94 10^3/uL (1.70-6.50) 03/27/18 08:40 Absolute Lymphs (auto) 1.00 10^3/uL (1.00-3.00) 03/27/18 08:40 Absolute Monos (auto) 0.64 10^3/uL (0.30-0.80) 03/27/18 08:40 Absolute Eos (auto) 0.18 10^3/uL (0.03-0.40) 03/27/18 08:40 Absolute Basos (auto) 0.07 10^3/uL (0.02-0.10) 03/27/18 08:40 Absolute Nucleated RBC 0.00 10^3/uL (0-0.01) 03/27/18 08:40 Immature Gran % 0.2 % (0.0-1.1) 03/27/18 08:40 Immature Gran # 0.01 10^3/uL (0.00-0.10) 03/27/18 08:40 ESR 29 MM/HR (0-30) 03/27/18 08:40 PT 12.9 SEC (12.0-15.0) 03/27/18 14:21 INR 0.95 (0.83-1.16) 03/27/18 14:21 APTT 27.2 SEC (23.0-38.0) 03/27/18 14:21 Sodium 133 mEq/L (135-145) L 03/27/18 08:40 Potassium 4.4 mEq/L (3.3-5.0) 03/27/18 08:40 Chloride 98 mEq/L (97-110) 03/27/18 08:40 Carbon Dioxide 25 mEq/l (22-31) 03/27/18 08:40 Anion Gap 10 mEq/L (8-16) 03/27/18 08:40 BUN 12 mg/dL (7-23) 03/27/18 08:40 Creatinine 0.8 mg/dL (0.6-1.0) 03/27/18 08:40 Estimated GFR > 60 03/27/18 08:40 Glucose 89 mg/dL (70-100) 03/27/18 08:40 Calcium 8.6 mg/dL (8.5-10.4) 03/27/18 08:40 C-Reactive Protein 30.1 mg/L (<10.0) H 03/27/18 08:40 Visualized and Interpreted imaging results: Yes Interpretation: abd CT: 6.5 cm presacral abscess Assessment & Plan Assessment: 67 yo F with pmh of metastatic rectal cancer and recurrent presacral abscess presenting with sacral pain and recurrent sacral abscess # pre sacral abscess: in setting of metastatic rectal cancer and recurrent abscess, plan for IR drainage today, ID consulted, cultures ordered. Started empirically on ertapenem. Pain control with prn dilaudid/oxycodone # metastatic rectal cancer: s/p surgical resection/chemo/xrt with ostomy and oversewn anus. She is followed by Dr. Griffith. # anemia: chronic and at baseline, likely due to anemia of chronic disease # hyponatremia: mild, trending # observation status for now, patient hoping to dc in am Patient new to my care. Old records reviewed and summarized as above. Care plan reviewed with Dr. Shoemaker of IR.
[2018-03-27 18:08] LABS: PLATELET COUNT 297 10^3/uL (150-400)
[2018-03-27] MEDS: ACETAMINOPHEN 325 MG TAB PO PRN (20:50)
[2018-03-28] MEDS: HYDROmorphONE/DILAUDID 1 MG/ML INJ IVP PRN ×2 (01:52→08:15)
[2018-03-28] MEDS: ACETAMINOPHEN 325 MG TAB PO PRN ×2 (01:52→08:13)
[2018-03-28] MEDS: traMADol 50 MG TAB PO PRN ×2 (05:01→11:26)
[2018-03-28] MEDS ORDERED: GADOBUTROL 10 ML VIAL IVP ONE (08:56)
[2018-03-28] MEDS: ERTAPENEM 1 GM in NS 100 ML IV SCH (09:38)
[2018-03-28 11:19] VITALS: BP 99/55
[2018-03-28] MEDS ORDERED: MELATONIN 20 MG PO PRN (12:22)
[2018-03-28] MEDS ORDERED: IBUPROFEN 200 MG TAB PO PRN (12:22)
[2018-03-28] MEDS ORDERED: LIDOCAINE/PRILOCAINE 1 EACH CRTUBE TP PRN (12:22)
[2018-03-28] MEDS ORDERED: traMADol 50 MG TAB PO PRN (12:22)
--- NOTE | 2018-03-28 12:23 | PDDCSUM ---
Discharge Summary Discharge Summary: Dates of service 03/27-03/28/18 Consultations: IR, ID Procedures: CT guided abscess drainage Hospital course by problem: 67 yo F with pmh of metastatic rectal cancer and recurrent presacral abscess presenting with sacral pain and recurrent sacral abscess # recurrent pre sacral abscess: in setting of metastatic rectal cancer and recurrent abscess, sp IR drainage today, cultures ordered. Started empirically on ertapenem and appreciate ID plan for f/u--will f/u in infusion center for ongoing abx. Pain control with prn dilaudid/oxycodone # metastatic rectal cancer: s/p surgical resection/chemo/xrt with ostomy and oversewn anus. She is followed by Dr. Griffith. # anemia: chronic and at baseline, likely due to anemia of chronic disease # hyponatremia: improved, mild DC home f/u with ID, oncology > 35 min spent in dc more than half in coordination of care
--- NOTE | 2018-03-28 13:20 | PCMIDPN ---
Assessment/Plan: Assessment/Plan: * Recurrent presacral abscess: Clinically improved post drainage. Current cultures are no growth to date although early in intubation. Prior cultures with growth of Proprionibacterium species. Patient eager to be discharged and has planned travel next week in. Pelvic MRI does not show evidence of sacral osteomyelitis. Will treat with ertapenem 1 g IV daily on infusion center through Wednesday of next week with hopes of transitioning to oral antibiotic therapy thereafter. Definitive antibiotic therapy will be aided by microbiologic data as available. Will arrange for follow-up in our office later this week. Side effects of ertapenem discussed with patient today. 03/28/18 13:17 03/28/18 13:19 Subjective: Patient feels significantly better post abscess drainage. Eager to go home and would like to maintain plans for her travel to [place] next week. Objective: Vital Signs Temp Pulse Resp BP Pulse Ox 37.1 C 63 14 99/55 L 97 03/28/18 11:18 03/28/18 11:18 03/28/18 11:18 03/28/18 11:18 03/28/18 11:18 Microbiology 03/27/18 15:13 Gram Stain - Final Abdomen - Aspirate Laboratory Results 03/27/18 18:00 03/28/18 05:45 03/27/18 03/28/18 03/29/18 05:59 05:59 05:59 Intake Total 2950 Output Total 385 500 Balance 2565 -500 ESR 29 MM/HR (0-30) 03/27/18 08:40 C-Reactive Protein 30.1 mg/L (<10.0) H 03/27/18 08:40 Ertapenem # 2 Abscess Gram stain no organisms, culture no growth to date - Physical Exam General Appearance: alert, no apparent distress EENT: No thrush Cardiac/Chest: regular rate, rhythm Abdomen: non-tender, other (ALETHEA drain with seropurulent output), No distended Skin: No rash - Time Spent With Patient Time Spent with Patient: greater than 35 minutes Time Spent with Patient: Greater than 35 minutes spent on this patients care, greater than 50% of time spent counseling, educating, and coordinating care regarding the above mentioned plan. ICD10 Worksheet Patient Problems: Problems Problem Status Onset Chest pain Acute
== END 2018-03-28 14:40 | disposition home or self-care (01) ==
LOC: F3E 13:45
PROVIDERS: ADMIT Internal Medicine; ATTEND Internal Medicine
PROC: 0J9930Z Drainage of Buttock Subcutaneous Tissue and Fascia with Drainage Device, Percutaneous Approach (ICD-10-PCS; principal; 2018-03-27 15:45)
DX: L02.31 Cutaneous abscess of buttock (principal); M53.3 Sacrococcygeal disorders, not elsewhere classified; Z85.048 Personal history of other malignant neoplasm of rectum, rectosigmoid junction, and anus
CPT/HCPCS: 10160; 72197; 74177; 75989; 96360; 97165; 99152; 99285; A9585; G0378; G8987; G8988; G8989; J1170; J1335; J2250; J3010; Q9967; J2310

== ENCOUNTER → 2018-04-08 | Outpatient (CLI) | payer OTHER ==
[~2018-04-08] MED LIST: IOPAMIDOL (ISOVUE-300) 100 ML BTL ONE
== END ==
LOC: FIMAGING 14:02
PROVIDERS: ATTEND Nurse Practitioner
DX: M46.28 Osteomyelitis of vertebra, sacral and sacrococcygeal region (principal)
CPT/HCPCS: 72193; Q9967

== ENCOUNTER → 2018-04-14 | Day surgery (SDC) | payer OTHER | END | disposition home or self-care (01) | LOC: FIMAGING 10:12 | PROVIDERS: ATTEND Radiology Diagnostic Radiology | DX: Z46.82 Encounter for fitting and adjustment of non-vascular catheter (principal) | CPT/HCPCS: 49424; 76000; C1769 ==

== ENCOUNTER → 2018-04-19 | Outpatient (CLI) | payer OTHER ==
[~2018-04-19] MED LIST changes: +IOPAMIDOL (ISOVUE 370) 100 ML BTL IV ONE; -IOPAMIDOL (ISOVUE-300) 100 ML BTL ONE
== END ==
LOC: FIMAGING 14:22
PROVIDERS: ATTEND Surgery
DX: T82.868A Thrombosis due to vascular prosthetic devices, implants and grafts, initial encounter (principal)
CPT/HCPCS: 76000; Q9967

== ENCOUNTER → 2018-04-20 | Day surgery (SDC) | payer OTHER | END | disposition home or self-care (01) | PROC: 06H033Z Insertion of Infusion Device into Inferior Vena Cava, Percutaneous Approach (ICD-10-PCS; principal; 2018-04-20) | PROC: 3E04317 Introduction of Other Thrombolytic into Central Vein, Percutaneous Approach (ICD-10-PCS; principal; 2018-04-20) | PROC: B5191ZA Fluoroscopy of Inferior Vena Cava using Low Osmolar Contrast, Guidance (ICD-10-PCS; principal; 2018-04-20) | DX: T82.594A Other mechanical complication of infusion catheter, initial encounter (principal); Z45.2 Encounter for adjustment and management of vascular access device | CPT/HCPCS: J1642; J2997; Q9967 ==

== ENCOUNTER 2018-04-22 09:38 | Day surgery (SDC) | payer OTHER ==
[2018-04-22] MEDS ORDERED: ceFAZolin 2 GM/DEXTROSE 100 ML IV ONE (09:51)
[2018-04-22] MEDS ORDERED: LR 1,000 ML IV ONE (09:52)
[2018-04-22] MEDS ORDERED: PROPOFOL 200 MG/20 ML VIAL ONE (12:10)
[2018-04-22] MEDS ORDERED: fentaNYL 100 MCG/2 ML INJ ONE (12:10)
[2018-04-22] MEDS ORDERED: DEXAMETHASONE 4 MG/ML VIAL ONE (12:11)
[2018-04-22] MEDS ORDERED: LIDOCAINE 2% 5 ML SDV ONE (12:11)
[2018-04-22] MEDS ORDERED: BUPIVACAINE 0.25% 30 ML SDV ONE (12:15)
[2018-04-22] MEDS ORDERED: LIDOCAINE 1% 300 MG/30 ML SDV ONE (12:15)
[2018-04-22] MEDS ORDERED: NA BICARBONATE 50 MEQ/50 ML VIAL ONE (12:15)
[2018-04-22] MEDS ORDERED: MIDAZOLAM 2 MG/2 ML VIAL IVP ONE (12:54)
--- NOTE | 2018-04-22 12:55 | PDANEPAE ---
ANE History of Present Illness h/o colorectal cancer for port removal and placement ANE Past Medical History - Cardiovascular History Hx Hypertension: No Hx Arrhythmias: No Hx Chest Pain: No Hx Coronary Artery / Peripheral Vascular Disease: No Hx CHF / Valvular Disease: No Hx Palpitations: No - Pulmonary History Hx COPD: No Hx Asthma/Reactive Airway Disease: No Hx Recent Upper Respiratory Infection: No Hx Oxygen in Use at Home: No Hx Sleep Apnea: No Sleep Apnea Screening Result - Last Documented: Negative - Neurologic History Hx Cerebrovascular Accident: No Hx Seizures: No Hx Dementia: No - Endocrine History Hx Diabetes: No Obesity: no - Renal History Hx Renal Disorders: No - Liver History Hx Hepatic Disorders: No - Neurological & Psychiatric Hx Hx Neurological and Psychiatric Disorders: No - Cancer History Hx Cancer: Yes Cancer History Comment: Rectal - Congenital Disorder History Hx Congenital Disorders: No - GI History Hx Gastrointestinal Disorders: Yes Gastrointestinal History Comment: 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 FOR OSTEOMEYELITIS OF COCCYX - Chronic Pain History Chronic Pain: Yes (RECTAL) - Surgical History Prior Surgeries: PORT PLACEMENT 05/2018. ABDOMINOPERNEAL RESECTION REMVL RECTUM WITH COLOSTOMY 12/2017 AT [facility] POST ABCESS NEEDED DRAINS. Right Shoulder. Tonsils ANE Review of Systems Review of systems is: negative Review of Systems: - Exercise capacity METS (RN): 4 METS ANE Patient History - Allergies Allergies/Adverse Reactions: No Known Allergies Allergy (Verified 03/27/18 08:46) - Home Medications Home medications: home medication list seen and reviewed Home Medications: Acetaminophen [Tylenol ES 500 mg (*)] 1,000 mg PO Q6HRS PRN 03/27/18 [Last Taken 1 Week Ago ~04/15/18] Herbals/Supplements -Info Only 1 ea PO DAILY 03/27/18 [Last Taken 04/20/18] Melatonin 20 mg PO HS PRN 03/27/18 [Last Taken 04/21/18] traMADol [Ultram 50 mg (*)] 50 mg PO Q6HRS PRN 03/27/18 [Last Taken 04/22/18] - NPO status NPO Since - Liquids (Date): 04/22/18 NPO Since - Liquids (Time): 07:00 NPO Since - Solids (Date): 06/21/18 NPO Since - Solids (Time): 19:00 - Anes Hx Anes Hx: no prior problems - Smoking Hx Smoking Status: Never smoked - Family Anes Hx Family Hx Anesthesia Complications: None known ANE Labs/Vital Signs - Vital Signs Blood Pressure: 114/68 Heart Rate: 58 Respiratory Rate: 15 O2 Sat (%): 96 Height: 170.18 cm Weight: 68.039 kg ANE Physical Exam - Airway Neck exam: FROM Mallampati Score: Class 1 Mouth exam: normal dental/mouth exam - Pulmonary Pulmonary: no respiratory distress - Cardiovascular Cardiovascular: regular rate and rhythym - ASA Status ASA Status: II ANE Anesthesia Plan Anesthesia Plan: GA w LMA
[2018-04-22] MEDS ORDERED: ePHEDrine SULFATE 25 MG/5 ML SYR ONE (13:17)
[2018-04-22] MEDS ORDERED: ONDANSETRON 4 MG/2 ML VIAL ONE (13:48)
[2018-04-22] MEDS ORDERED: KETOROLAC 30 MG/1 ML SDV ONE (13:48)
--- NOTE | 2018-04-22 13:50 | POSTANESTH ---
Post Anesthetic Evaluation Cardiovascular Status: Normal, Stable Respiratory Status: Normal, Stable Level of Consciousness/Mental Status: Can Participate in Eval, Mildly Sleepy, Arousable Pain Control: Adequate, Prn Tx Ordered Nausea/Vomiting Control: Adequate, Prn Tx Ordered Complications Possibly Related to Anesthesia: None Noted
[2018-04-22] MEDS ORDERED: fentaNYL 100 MCG/2 ML INJ IVP PRN (13:51)
[2018-04-22] MEDS ORDERED: ACETAMINOPHEN 500 MG TAB PO PRN (13:51)
[2018-04-22] MEDS ORDERED: oxyCODONE IR 5 MG TAB PO PRN (13:51)
[2018-04-22] MEDS ORDERED: LR 500 ML IV PRN (13:51)
[2018-04-22] MEDS ORDERED: PROMETHAZINE HCL 25 MG/ML INJ IVP PRN (13:51)
[2018-04-22] MEDS ORDERED: ONDANSETRON 4 MG/2 ML VIAL IVP PRN (13:51)
[2018-04-22] MEDS ORDERED: HYDROmorphONE/DILAUDID 1 MG/ML INJ IVP PRN (13:51)
[2018-04-22] MEDS ORDERED: NALOXONE HCL 0.4 MG/ML INJ IVP PRN (13:51)
[2018-04-22] MEDS ORDERED: ALBUTEROL 3 ML DEYVIAL IH PRN (13:51)
--- NOTE | 2018-04-22 15:17 | POSTOPPROG ---
Post Op Note Date of Operation: 04/22/18 Surgeon: Bret Ritter Anesthesiologist: isabell Anesthesia: GET(General Endotracheal) Pre-op Diagnosis: Colorectal cancer Post-op Diagnosis: Same Indication: Chemotherapy access Procedure: Left subclavian port placement with fluoroscopic guidance/ removal old port Findings: Good position and flow Inf/Abcess present in the surg proc area at time of surgery?: No Depth: Deep Incisional (Fascial) EBL: Minimal Complications: None Specimen(s): Old port
[2018-04-22 15:50] VITALS: BP 128/80
--- NOTE | 2018-04-23 21:01 | GOP ---
[f rep st] OPERATIVE REPORT DATE OF OPERATION: 04/22/2018 SURGEON: Bret Ritter MD PREOPERATIVE DIAGNOSIS: Metastatic colorectal cancer. POSTOPERATIVE DIAGNOSIS: Metastatic colorectal cancer. PROCEDURE PERFORMED: 1. Left subclavian port placement with fluoroscopic guidance. 2. Removal of old nonfunctioning port. FINDINGS: The patient was found to have good position and flow of the new catheter. ESTIMATED BLOOD LOSS: Negligible. DESCRIPTION OF PROCEDURE: The patient was taken to the operating room where she received satisfactor y general laryngeal mask anesthesia by Dr. Santos. She was placed in supine position, prepped and draped in the usual sterile fashion. She was then placed in Trendelenburg. A single stick was made in the left subclavian vein. A guidewire was introduced. Position was confirmed with fluoroscopy. Incision was made over the old port pocket through the old scar. Dissection extended down to the por t pocket. Then the port was freed up and removed, along with its catheter portion. This was totally removed, and the port was brought in and the tubing was passed from this pocket to the new insertion site. It was trimmed to the appropriate length using fluoroscopic guidance. An introducer sheath a nd dilator system were passed through the guidewire, which were removed. The catheter was then intro duced into the right atrium. Good backflow was achieved. The catheter was flushed with heparin sali ne. Port was secured to the fascia with 3-0 Vicryl. The pocket was closed with 3-0 Vicryl for the s ubcutaneous tissue, 4-0 Monocryl subcuticular stitch for the skin. The entrance site was closed with 4-0 Monocryl subcuticular suture. The wound was dressed with some Dermabond glue. She tolerated th e procedure well. Taken to recovery room in good condition. There were no complications. /[id number]/MODL
== END 2018-04-22 16:08 | disposition home or self-care (01) ==
LOC: FSGY 09:38
PROVIDERS: ATTEND Surgery
PROC: 02HV33Z Insertion of Infusion Device into Superior Vena Cava, Percutaneous Approach (ICD-10-PCS; principal; 2018-04-22 11:00)
PROC: 0JH60XZ Insertion of Tunneled Vascular Access Device into Chest Subcutaneous Tissue and Fascia, Open Approach (ICD-10-PCS; principal; 2018-04-22 11:00)
PROC: B5181ZA Fluoroscopy of Superior Vena Cava using Low Osmolar Contrast, Guidance (ICD-10-PCS; principal; 2018-04-22 11:00)
PROC: 0JPT0XZ Removal of Tunneled Vascular Access Device from Trunk Subcutaneous Tissue and Fascia, Open Approach (ICD-10-PCS; principal; 2018-04-22 11:00)
DX: T82.594A Other mechanical complication of infusion catheter, initial encounter (principal); C20 Malignant neoplasm of rectum; Z79.2 Long term (current) use of antibiotics; Z92.21 Personal history of antineoplastic chemotherapy; Z90.49 Acquired absence of other specified parts of digestive tract
CPT/HCPCS: C1788; J0690; J1100; J1642; J1885; J2405; J2704; J3010

== ENCOUNTER → 2018-07-08 | Outpatient (CLI) | payer OTHER ==
[~2018-07-08] MED LIST changes: -IOPAMIDOL (ISOVUE 370) 100 ML BTL IV ONE; +IOPAMIDOL (ISOVUE-300) 100 ML BTL ONE
== END ==
LOC: FIMAGING 12:58
PROVIDERS: ATTEND Internal Medicine Infectious Disease
DX: L02.212 Cutaneous abscess of back [any part, except buttock and flank] (principal)
CPT/HCPCS: 72193; Q9967

== ENCOUNTER → 2018-09-29 | Day surgery (SDC) | payer OTHER ==
[~2018-09-29] MED LIST changes: +ACETAMINOPHEN 325 MG TAB PO PRN; +FLUMAZENIL 0.5 MG/5 ML MDV IVP ONE; +FLUMAZENIL 0.5 MG/5 ML MDV IVP PRN; -IOPAMIDOL (ISOVUE-300) 100 ML BTL ONE; +LIDOCAINE 1% 300 MG/30 ML SDV ONE; +MEPERIDINE 25 MG/ML SYR IVP PRN; +MIDAZOLAM 2 MG/2 ML VIAL IVP PRN; +MIDAZOLAM 2 MG/2 ML VIAL ONE; +NALOXONE HCL 0.4 MG/ML INJ IVP PRN; +NALOXONE HCL 0.4 MG/ML INJ ONE; +NS 1,000 ML IV SCH; +ONDANSETRON 4 MG/2 ML VIAL IVP PRN; +fentaNYL 100 MCG/2 ML INJ IVP PRN; +fentaNYL 100 MCG/2 ML INJ ONE
[2018-09-29 11:29] LABS: INR 0.96 (0.83-1.16)
--- NOTE | 2018-09-29 12:40 | PDPROPOC ---
Sedation Plan of Care ASA Classification: ASA 2 Mallampati Score: Class 2 Mallampati Reference Image:
--- NOTE | 2018-09-29 12:40 | PDRADPRE ---
Radiology History & Physical Indication for procedure: other (pre-sacral collection) Home medications: Acetaminophen [Tylenol ES 500 mg (*)] 1,000 mg PO Q6HRS PRN 03/27/18 [Last Taken 1 Week Ago ~04/15/18] Herbals/Supplements -Info Only 1 ea PO DAILY 03/27/18 [Last Taken 04/20/18] Melatonin 20 mg PO HS PRN 03/27/18 [Last Taken 04/21/18] traMADol [Ultram 50 mg (*)] 50 mg PO Q6HRS PRN 03/27/18 [Last Taken 04/22/18] Allergies/Adverse Reactions: No Known Allergies Allergy (Verified 03/27/18 08:46) Mental status: A&Ox3 Mallampati Score: Class 2
--- NOTE | 2018-09-29 12:41 | PDRADPN ---
Radiology Procedure Note Date of Procedure: 09/29/18 Radiologist: Oswald Hair Anesthesia: IV Sedation Pre-op Diagnosis: pre-sacral collection Post-op Diagnosis: same Procedure: aspiration Finding(s): very complex collection with only 5 cc aspirated after washing with saline Inf/Abcess present in the surg proc area at time of surgery?: Yes Depth: Deep Incisional (Fascial)
[2018-09-29 14:17] VITALS: BP 110/72
== END | disposition home or self-care (01) ==
LOC: FIMAGING 10:30
PROVIDERS: ATTEND Internal Medicine Infectious Disease
DX: M46.28 Osteomyelitis of vertebra, sacral and sacrococcygeal region (principal); Z85.048 Personal history of other malignant neoplasm of rectum, rectosigmoid junction, and anus; Z90.49 Acquired absence of other specified parts of digestive tract
CPT/HCPCS: J2250; J2310; J3010

== ENCOUNTER → 2018-09-30 | Outpatient (CLI) | payer OTHER | LOC: FIMAGING 07:36 | PROVIDERS: ATTEND Internal Medicine Hematology & Oncology | DX: N85.00 Endometrial hyperplasia, unspecified (principal); C20 Malignant neoplasm of rectum; N85.8 Other specified noninflammatory disorders of uterus; Z78.0 Asymptomatic menopausal state ==

== ENCOUNTER 2018-11-18 11:14 | Emergency (ER) | payer OTHER ==
--- NOTE | 2018-11-18 11:39 | EDPHY ---
HPI/HX/ROS/PE/MDM <Sammy Zhang - Last Filed: 11/18/18 12:39> - Data Points Imaging: Discussed imaging studies w/ body recall instructor Radiologist <Roe Gar - Last Filed: 11/18/18 15:41> Narrative: CHIEF COMPLAINT: Coccyx pain HPI: The patient is a 68 y/o female with colorectal cancer and pre-sacral abscess who complains of worsening pain over the last two days near the site of a known abscess at the end of her sacrum. Her last CT in early September showed the abscess was shrinking to about 2cm in diameter. She reports her pain is a main indicator of infection with this abscess and it started recurring so she started Augmentin 10 days ago. She describes stinging pain at the base of her sacrum. She typically does not use narcotics for her pain, but had to start taking old Tramadol to help control her current symptoms. She is worried the abscess infection is worsening. She denies drainage, fever. REVIEW OF SYSTEMS: A comprehensive 10 system review of systems is otherwise negative aside from elements mentioned in the history of present illness. PMH: Colorectal cancer with metastasis to lung - radiation, resection, & chemotherapy, pre-sacral abscess, coccyx removal, colostomy SOCIAL HISTORY: . Lives in [place]. ID: Dr. Vernon Prior medical records reviewed including ID note 09/05/18. PHYSICAL EXAM: General:Patient is alert, in no acute distress. ENT:Eyes are normal to inspection. ENT inspection normal. Neck: Normal inspection. Full range of motion. Respiratory:No respiratory distress. Breath sounds normal bilaterally. Cardiovascular: Regular rate and rhythm. Strong peripheral pulses. Normal cap refill. Abdomen:The abdomen is nontender to palpation. There are no peritoneal signs. Back: No sacral tenderness, erythema, or fluctuance. Normal to inspection. No tenderness to palpation. Skin: Normal color. No rash. Warm and dry. Extremities: Normal appearance. Full range of motion. Neuro: Oriented x3. Normal motor function. Normal sensory function. (Sammy Zhang) ED Course: Plan for IV, labs, symptomatic management, and ID consultation. 50mg PO Tramadol ordered. 1230: Consulted with Dr. Gaxiola, IR. She recommends CT scan and if amenable to drainage she will drain at that time. (Sammy Zhang) MDM: Care assumed at 2:53 p.m., per Dr. Zhang the plan is for the patient have CT and then be discharged. If there is an abscess will be drained interventional radiology, she will be discharged either way. Discussed with Dr. Valeria Warner at 2:56 p.m.. 1534: Dr. Jie Gaxiola drained 2 mL, tells me that she discussed the case with Dr. Vernon who recommends sending the patient home with follow-up in the office next week. Discussed with the patient at this time, she would like to be discharged I think is reasonable. She is currently on antibiotics and will see her infectious disease physician on Wednesday in the office as scheduled. (Roe Gar) - Data Points Laboratory Results: Laboratory Results 11/18/18 12:05 11/18/18 12:05 11/18/18 11/18/18 12:05 12:05 WBC 5.45 10^3/uL 10^3/uL (3.80-9.50) RBC 4.01 10^6/uL L 10^6/uL (4.18-5.33) Hgb 11.8 g/dL L g/dL (12.6-16.3) Hct 35.4 % L % (38.0-47.0) MCV 88.3 fL fL (81.5-99.8) MCH 29.4 pg pg (27.9-34.1) MCHC 33.3 g/dL g/dL (32.4-36.7) RDW 13.4 % % (11.5-15.2) Plt Count 197 10^3/uL 10^3/uL (150-400) MPV 9.6 fL fL (8.7-11.7) Neut % (Auto) 67.5 % % (39.3-74.2) Lymph % (Auto) 21.7 % % (15.0-45.0) [place] % (Auto) 8.4 % % (4.5-13.0) Eos % (Auto) 1.3 % % (0.6-7.6) Baso % (Auto) 0.9 % % (0.3-1.7) Nucleat RBC Rel Count 0.0 % % (0.0-0.2) Absolute Neuts (auto) 3.68 10^3/uL 10^3/uL (1.70-6.50) Absolute Lymphs (auto) 1.18 10^3/uL 10^3/uL (1.00-3.00) Absolute Monos (auto) 0.46 10^3/uL 10^3/uL (0.30-0.80) Absolute Eos (auto) 0.07 10^3/uL 10^3/uL (0.03-0.40) Absolute Basos (auto) 0.05 10^3/uL 10^3/uL (0.02-0.10) Absolute Nucleated RBC 0.00 10^3/uL 10^3/uL (0-0.01) Immature Gran % 0.2 % % (0.0-1.1) Immature Gran # 0.01 10^3/uL 10^3/uL (0.00-0.10) Sodium 134 mEq/L L mEq/L (135-145) Potassium 4.1 mEq/L mEq/L (3.5-5.2) Chloride 102 mEq/L mEq/L (97-110) Carbon Dioxide 27 mEq/l mEq/l (22-31) Anion Gap 5 mEq/L L mEq/L (6-14) BUN 13 mg/dL mg/dL (7-23) Creatinine 0.8 mg/dL mg/dL (0.6-1.0) Estimated GFR > 60 Glucose 89 mg/dL mg/dL (70-100) Calcium 9.0 mg/dL mg/dL (8.5-10.4) Medications Given: Discontinued Medications Tramadol HCl (Ultram) 50 mg PO EDNOW ONE Stop: 11/18/18 11:43 Last Admin: 11/18/18 11:46 Dose: 50 mg General <Sammy Zhang - Last Filed: 11/18/18 12:39> <Roe Gar - Last Filed: 11/18/18 15:41> Time Seen by Provider: 11/18/18 11:23 Initial Vital Signs: Initial Vital Signs Temperature (C) 37.1 C 11/18/18 11:19 Heart Rate 66 11/18/18 11:19 Respiratory Rate 18 11/18/18 11:19 Blood Pressure 111/79 11/18/18 11:19 O2 Sat (%) 99 11/18/18 11:19 O2 Delivery Mode Room Air Allergies/Adverse Reactions: No Known Allergies Allergy (Verified 11/18/18 11:18) Home Medications: Medication Instructions Recorded Melatonin 20 mg PO HS PRN 03/27/18 Amox Tr/Potassium Clavulanate 1 each PO 11/18/18 [Augmentin 1000MG ER Tablet (*)] Departure <Sammy Zhang - Last Filed: 11/18/18 12:39> <Roe Gar - Last Filed: 11/18/18 15:41> - Departure Disposition: Home, Routine, Self-Care Clinical Impression: rectal abscess drainage Condition: Good Instructions: Abscess (ED) Referrals: Braxton Vernon MD [Medical Doctor] - As per Instructions Report Scribed for: Sammy Zhang Report Scribed by: Yamila Fernandez Date of Report: 11/18/18 Time of Report: 12:33 Physician Review and Approval Statement: Portions of this note were transcribed by an ED scribe. I personally performed the history, physical exam, and medical decision making; and confirm the accuracy of the information in the transcribed note. <Sammy Zhang - Last Filed: 11/18/18 12:39>
[2018-11-18] MEDS ORDERED: traMADol 50 MG TAB PO ONE (11:42)
[2018-11-18 12:23] LABS: PLATELET COUNT 197 10^3/uL (150-400)
[2018-11-18] MEDS ORDERED: IOPAMIDOL (ISOVUE 370) 100 ML BTL IV ONE (14:07)
[2018-11-18] MEDS ORDERED: LIDOCAINE 1% 300 MG/30 ML SDV ONE (14:10)
[2018-11-18] MEDS ORDERED: fentaNYL 100 MCG/2 ML INJ ONE (14:30)
[2018-11-18] MEDS ORDERED: FLUMAZENIL 0.5 MG/5 ML MDV IVP PRN (14:51)
[2018-11-18] MEDS ORDERED: NALOXONE HCL 0.4 MG/ML INJ IVP PRN (14:51)
[2018-11-18] MEDS ORDERED: fentaNYL 100 MCG/2 ML INJ IVP PRN (14:51)
[2018-11-18] MEDS ORDERED: NS 1,000 ML IV SCH (15:00)
[2018-11-18 15:37] VITALS: BP 125/77
== END 2018-11-18 15:49 | disposition home or self-care (01) ==
PROC: 0D9P0ZZ Drainage of Rectum, Open Approach (ICD-10-PCS; principal; 2018-11-18)
DX: K61.1 Rectal abscess (principal); Z85.048 Personal history of other malignant neoplasm of rectum, rectosigmoid junction, and anus; Z85.118 Personal history of other malignant neoplasm of bronchus and lung
CPT/HCPCS: 46040; 72193; 75989; 76882; 96374; 99285; J1642; J3010; Q9967

== ENCOUNTER → 2018-11-23 | Outpatient (CLI) | payer OTHER ==
[~2018-11-23] MED LIST changes: -ACETAMINOPHEN 325 MG TAB PO PRN; -FLUMAZENIL 0.5 MG/5 ML MDV IVP ONE; -FLUMAZENIL 0.5 MG/5 ML MDV IVP PRN; +GADOBUTROL 10 ML VIAL IVP ONE; -LIDOCAINE 1% 300 MG/30 ML SDV ONE; -MEPERIDINE 25 MG/ML SYR IVP PRN; -MIDAZOLAM 2 MG/2 ML VIAL IVP PRN; -MIDAZOLAM 2 MG/2 ML VIAL ONE; -NALOXONE HCL 0.4 MG/ML INJ IVP PRN; -NALOXONE HCL 0.4 MG/ML INJ ONE; -NS 1,000 ML IV SCH; -ONDANSETRON 4 MG/2 ML VIAL IVP PRN; -fentaNYL 100 MCG/2 ML INJ IVP PRN; -fentaNYL 100 MCG/2 ML INJ ONE
== END ==
LOC: FIMAGING 12:51
PROVIDERS: ATTEND Internal Medicine Infectious Disease
DX: M46.28 Osteomyelitis of vertebra, sacral and sacrococcygeal region (principal)
CPT/HCPCS: 72197; A9585

== ENCOUNTER → 2019-02-10 | Outpatient (CLI) | payer OTHER | LOC: FIMAGING 06:48 | PROVIDERS: ATTEND Internal Medicine Hematology & Oncology | DX: C20 Malignant neoplasm of rectum (principal); K76.89 Other specified diseases of liver | CPT/HCPCS: 74183; A9585 ==

== ENCOUNTER 2019-02-22 11:55 | Day surgery (SDC) | payer OTHER ==
[2019-02-22] MEDS ORDERED: FLUMAZENIL 0.5 MG/5 ML MDV IVP PRN (12:05)
[2019-02-22] MEDS ORDERED: NALOXONE HCL 0.4 MG/ML INJ IVP PRN (12:05)
[2019-02-22] MEDS ORDERED: MIDAZOLAM 2 MG/2 ML VIAL IVP PRN (12:05)
[2019-02-22] MEDS ORDERED: fentaNYL 100 MCG/2 ML INJ IVP PRN (12:05)
[2019-02-22] MEDS ORDERED: NS 1,000 ML IV SCH (12:15)
[2019-02-22 13:33] LABS: INR 0.93 (0.83-1.16); PROTIME(PATIENT) 12.1 SEC (12.0-15.0)
--- NOTE | 2019-02-22 13:58 | PDGENHP ---
History & Physical Chief Complaint: SACRAL INFECTION History of Present Illness: PATIENT HAS HAD PRIOR SURGERY. NOW HAS INFLAMMATORY/ INFECTIOUS FINDINGS AT SACRAL OPERATIVE SITES ON MRI. NEED TISSUE FOR DIAGNOSIS OF MICROORGANISM Pertinent Past, Social, Family History: RT SHOULDER, CANCER OF RECTOMECTOMY, PERIRECAL ABSCESS Relevant Physical Exam: IN NO DISTRESS Cardiorespiratory Assessment: RRR, CTA
--- NOTE | 2019-02-22 13:59 | PDPROPOC ---
Sedation Plan of Care Sedation Plan of Care: vital signs stable, mental status noted, patient educated of risks, benefits, alternatives, patient can tolerate sedation ASA Classification: ASA 2 Planned drugs: fentanyl, midazolam Mallampati Score: Class 2 Mallampati Reference Image: Patient passed 3-3-2 rule?: Yes
--- NOTE | 2019-02-22 15:38 | PDRADPN ---
Radiology Procedure Note Date of Procedure: 02/22/19 Radiologist: Jie Gaxiola Anesthesia: IV Sedation Pre-op Diagnosis: rectal CA Post-op Diagnosis: same Indication: sacral and coccxygeal inflammation/tumor/infection Procedure: CT guided biopsy of bone and soft tissue Inf/Abcess present in the surg proc area at time of surgery?: No
[2019-02-22 16:57] VITALS: BP 138/64
== END 2019-02-22 16:50 | disposition home or self-care (01) ==
LOC: FIMAGING 11:55
PROVIDERS: ATTEND Internal Medicine Infectious Disease
PROC: 0JBC3ZX Excision of Pelvic Region Subcutaneous Tissue and Fascia, Percutaneous Approach, Diagnostic (ICD-10-PCS; principal; 2019-02-22 15:38)
PROC: 0J9C3ZX Drainage of Pelvic Region Subcutaneous Tissue and Fascia, Percutaneous Approach, Diagnostic (ICD-10-PCS; principal; 2019-02-22 15:38)
PROC: 0QB13ZX Excision of Sacrum, Percutaneous Approach, Diagnostic (ICD-10-PCS; principal; 2019-02-22 15:38)
DX: T81.89XA Other complications of procedures, not elsewhere classified, initial encounter (principal); Z85.048 Personal history of other malignant neoplasm of rectum, rectosigmoid junction, and anus
CPT/HCPCS: J1642

== ENCOUNTER → 2019-02-22 | Outpatient (CLI) | payer OTHER | LOC: FIMAGING 12:00 ==